=== PATIENT | female | born 1970 | race Caucasian/White ===

== ENCOUNTER 2021-05-29 09:12 | Outpatient (REF) | payer BC, SELFPAY ==
--- NOTE | ~2021-05-29 | US_ITS ---
EXAMINATION: LEFT ULTRASOUND VENOUS DUPLEX STUDY. LEFT ANKLE X-RAY CLINICAL INFORMATION: Pain left lower leg COMPARISON: None TECHNIQUE: Routine grayscale, color and Doppler imaging of left lower leg was performed. Left ankle 3 views. FINDINGS: Ultrasound left lower leg: There is normal compression and augmentation with color flow seen in the left common femoral, greater saphenous, superficial femoral, profunda, popliteal, posterior tibial and peroneal veins. The soft tissues are normal. Left ankle: There is no visible acute fracture, dislocation and subluxation. The ankle mortise and subtalar joints are normal. There is a small calcaneal heel and dorsal talar enthesophytes. US/US venous duplex LE LT IMPRESSION: Normal left lower extremity venous study. No evidence of DVT. No visible acute fracture or dislocation left ankle. Small calcaneal heel and dorsal talar enthesophytes.
== END 2021-05-29 09:13 | disposition home or self-care (01) ==
LOC: HO.HMGCX 09:12
PROVIDERS: PCP Internal Medicine; Visit Provider Physician Assistant Medical
DX: M79.662 Pain in left lower leg (principal); S99.912A Unspecified injury of left ankle, initial encounter; X58.XXXA Exposure to other specified factors, initial encounter; Y93.9 Activity, unspecified; Y92.9 Unspecified place or not applicable; Y99.8 Other external cause status
CPT/HCPCS: 73610; 93971

== ENCOUNTER 2025-01-08 15:51 | Emergency (ER) | payer BC, SELFPAY ==
[2025-01-08] VITALS (8 sets, daily range): BP systolic 116–145; BP diastolic 67–90; PULSE 90–119; RESP 13–22; TEMP 36.6–39.6; O2SAT 95–99; BMI 23.7
--- NOTE | 2025-01-08 | ECG_ITS ---
Test Reason : TACHYCARDIA Blood Pressure : */* mmHG Vent. Rate : 105 BPM Atrial Rate : 105 BPM P-R Int : 168 ms QRS Dur : 86 ms QT Int : 348 ms P-R-T Axes : 40 55 11 degrees QTcB Int : 459 ms Sinus tachycardia T wave abnormality, consider inferior ischemia Abnormal ECG When compared with ECG of 21-Oct-2011 09:48, No significant changes seen Referred By: Shawn Daniels Electronically Signed By: GREGORY COLEMAN MD
--- NOTE | ~2025-01-08 | XR_ITS ---
CLINICAL HISTORY: PNEUMONIA. coUGHING?FEVER Chest Radiograph Comparison: CR/SR - XR CHEST 2V - 12/11/22 13:[address]/SR - CT CHEST WO CON - 04/05/22 08:34 EDT Findings: No cardiomegaly. Normal mediastinal contours. No pneumothorax. No opacity. No pleural effusion. Normal upper abdomen. No acute fracture. Impression: No acute findings. This document has been electronically signed by: Rama Soriano MD on 01/08/2025 17:10:05
[2025-01-08 16:44] LABS: MANUAL DIFF FLAG NO
--- NOTE | 2025-01-08 16:45 | ED.GENADULT ---
HPI - General Adult General Chief complaint: Fever Stated complaint: cough and fever of 104, hx copd, duo neb given Time Seen by Provider: 01/08/25 16:29 Source: patient Mode of arrival: ambulatory Limitations: no limitations History of Present Illness ED Provider: Shawn Hudson HPI narrative: 55-year-old female history of asthma, COPD and pneumonia presents to ED for coughing with yellow phlegm and fever. Patient is having symptoms for more than a week. Patient was seen at urgent care and informed there is nothing going on. Patient states she did not have an xray. Patient denies any abdominal pain, fever, chills, urinary symptoms, chest pain, flank pain, rash, or diarrhea Related Data Home Medications ?Medication ?Instructions ?Recorded ?Confirmed lamotrigine 100 mg tablet 100 mg PO DAILY 01/10/25 01/10/25 Previous Rx's ?Medication ?Instructions ?Recorded insulin syr/ndl U100 half carl 0.3 #100 ea 12/25/21 mL 31 gauge x 5/16 (BD Insulin Syringe Ultra-Fine (half unit)) albuterol sulfate 90 mcg/actuation 2 puff inhalation Q4H PRN Wheezing 09/13/22 aerosol inhaler #8.5 grams albuterol sulfate 90 mcg/actuation 2 puff inhalation Q6H PRN 10/15/22 aerosol inhaler shortness of breath or wheezing #6.7 grams trazodone 50 mg tablet 50 mg PO DAILY #90 tabs 06/09/23 gabapentin 300 mg capsule 300 mg PO BEDTIME #90 caps 07/04/23 venlafaxine 37.5 mg 75 mg (2 x 37.5 mg) PO BEDTIME 08/29/23 capsule,extended release 24 hr #180 caps (Effexor XR) meclizine 25 mg tablet 25 mg PO BID PRN dizziness #20 tabs 02/22/24 syringe with needle, safety 3 mL #3 ea 02/29/24 23 gauge x 1 (BD Integra Syringe) cyanocobalamin (vitamin B-12) 1,000 mcg IM Q4W #3 mL 04/10/24 1,000 mcg/mL injection solution rosuvastatin 40 mg tablet (Crestor) 40 mg PO DAILY #90 tabs 05/31/24 amlodipine 5 mg-benazepril 40 mg 1 cap PO DAILY #90 caps 11/07/24 capsule prednisone 20 mg tablet 40 mg (2 x 20 mg) PO DAILY 5 days 01/08/25 #10 tabs Breo Ellipta 100 mcg-25 mcg/dose 1 inh inhalation DAILY #60 ea 01/10/25 powder for inhalation (fluticasone furoate-vilanterol) azithromycin 250 mg tablet See Rx Instructions PO .COMPLEX #6 01/10/25 tabs prednisone 20 mg tablet 40 mg (2 x 20 mg) PO DAILY #10 tabs 01/10/25 promethazine 6.25 mg-codeine 10 5 ml PO Q6H PRN cough #473 mL 01/10/25 mg/5 mL syrup Allergies Allergy/AdvReac Type Severity Reaction Status Date / Time perflutren AdvReac Back Pain Verified 01/08/25 16:05 Review of Systems Review of Systems: Coughing, fever Yes all other systems are reviewed and are negative PMFSH Past Medical History Medical History Breast calcification, left PONV (postoperative nausea and vomiting) Abscess, intra-abdominal, postoperative Pelvic abscess in female Acute perforated appendicitis Asthma Hyperlipidemia Bilateral hand numbness Diarrhea Eating disorder HTN (hypertension) COPD (chronic obstructive pulmonary disease) Anxiety Left ankle sprain Surgical History History of laparoscopic appendectomy History of bladder suspension procedure History of thyroidectomy Hx of hysterectomy Family History Family History Brother Substance use disorder Brother Substance use disorder Mother Mental health disorder [place] (myocardial infarction), Onset Age: 64 Social History Social History Household Members: Spouse Household Members Other:: , 3 children, 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 Are you a primary home health care coordinator to a significant other at home: No Do you presently have visiting nurse or other home services: No Alcohol intake: current Alcohol intake frequency: a few times a month Alcohol type: wine Patient Tobacco Use Status: Former Tobacco user Tobacco use type: Cigarette e-Cigarette/Vaping Use: Never Used Advance Directives Date on File: 05/18/22 service: No Current occupational status: employed Current occupation: day care Cognitive needs: No Hearing needs: No Vision needs: Yes Physical Exam ED Vital Signs: Vital Signs - 24 hr 01/08/25 16:01 01/08/25 16:10 01/08/25 17:46 Temperature 103.2 F H 103.2 F H Pulse Rate 110 H 110 H 97 Respiratory Rate 22 H 22 H 18 Blood Pressure 139/85 139/85 123/78 Pulse Oximetry 96 96 96 Oxygen Delivery Method Room Air Room Air Room Air 01/08/25 18:00 01/08/25 18:27 01/08/25 18:39 Temperature 98.3 F 98.1 F Pulse Rate 97 96 Respiratory Rate 16 13 Blood Pressure 132/80 121/67 Pulse Oximetry 97 97 97 Oxygen Delivery Method Room Air Room Air 01/08/25 19:01 01/08/25 19:10 Temperature 97.8 F 97.8 F Pulse Rate 90 90 Respiratory Rate 14 18 Blood Pressure 116/76 116/76 Pulse Oximetry 95 98 Oxygen Delivery Method Room Air Room Air BMI result Body Mass Index 23.7 Const General: cooperative, healthy appearing, comfortable, no acute distress, well developed, alert and awake Orientation/consciousness: patient oriented x3 [facility] Head: Yes normal to inspection, Yes No palpable skull fracture present, Yes normocephalic and Yes atraumatic Eyes General: appearance normal, both eyes and all related structures Neck Neck: Yes normal visual inspection, Yes full ROM, Yes no lymphadenopathy, Yes no meningeal signs, Yes trachea midline, Yes supple, No anterior neck swelling and No tender Chest Chest palpation & inspection: normal inspection of the chest and normal palpation of entire chest wall Resp Effort & Inspection: normal respiratory effort and able to speak in complete sentences Auscultation: clear to auscultation bilaterally Cardio Jugular venous distension: no JVD Heart sounds: S1 normal heart sound present and S2 normal heart sound present GI Inspection: Yes normal to inspection Palpation (GI): Soft to palpation, not firm, nontender, no guarding and not rigid General: Yes no CVA tenderness Back/Spine/Pelvis Back: no CVA tenderness and No back tenderness Skin General skin exam: no rashes or lesions noted, elasticity normal and turgor normal Neuro General: patient oriented x3, gait normal, tone normal, moves all extremities, Normal light touch and pain sensation, no meningeal signs, no focal motor deficits, CN's II-XI intact bilaterally and normal sensation to monofilament Extrem General: Yes normal to inspection, Yes full ROM and Yes capillary refill normal Psych Appearance: grossly normal, well kempt and not disheveled Medications Administered Discontinued Medications Generic Name Dose Route Start Last Admin Trade Name Garcia PRN Reason Stop Dose Admin Acetaminophen 975 mg 01/08/25 16:34 01/08/25 16:58 Acetaminophen 325 Mg Tablet PO 01/08/25 16:35 975 mg ONCE ONE Administration Ceftriaxone Sodium 1 gm 01/08/25 16:46 01/08/25 16:58 Ceftriaxone Sodium 1 Gm Vial IVPUSH 01/08/25 16:47 1 gm ONCE ONE Administration Azithromycin 500 mg/ Sodium 250 mls @ 125 mls/hr 01/08/25 16:46 01/08/25 17:00 Chloride IV 01/08/25 18:45 125 mls/hr ONCE ONE Administration Lactated Ringer's 1,935 mls @ 1,935 mls/hr 01/08/25 16:56 01/08/25 18:45 Lr 30 ml/kg infuse over 1 hr (1935 ml) 01/08/25 17:55 Infused IV Infusion .Q1H ONE Ketorolac Tromethamine 30 mg 01/08/25 17:45 01/08/25 17:57 Ketorolac Tromethamine 30 Mg/Ml Vial IVPUSH 01/08/25 17:46 30 mg ONCE ONE Administration Medical Decision Making Medical Decision Making MDM Narrative: 55-year-old female presents to ED for coughing, fever coughing yellow phlegm chills and body aches for over 1 week. Patient was seen by urgent care and informed she did not have nothing although there was no chest x-ray done. Sepsis called. EKG labs fluids antibiotics albuterol inhaler ordered 7:06pm: Patient is positive for COVID. Chest x-ray negative pneumonia. EKG sinus tach. Oxygen ambulatory test 97% on room air. Not suspecting PE, GA, myocarditis, pericarditis. Patient will be discharged with steroids. Patient has albuterol pump at home. Patient will follow up with primary care provider. Patient explained worrisome signs and informed to return to the ED immediately. Differential Diagnosis Differential Diagnoses: The differential diagnosis associated with the presentation includes (Pneumonia, RSV, COVID, influenza) Admission/Observation Consideration of admission/observation: Escalation of care including admission/observation considered Lab Data 01/08/25 16:40 01/08/25 16:40 Labs: Lab Results 01/08/25 01/08/25 01/08/25 Range/Units 16:40 16:41 17:14 WBC 5.8 (4.8-10.8) X10*3/uL RBC 3.69 L (4.20-5.50) X10*6/uL Hgb 11.7 L (12.0-16.0) g/dl Hct 33.7 L (37.0-47.0) % MCV 91.3 (80.0-98.0) fL MCH 31.7 (27.0-33.0) pg MCHC 34.7 (31.0-35.0) g/dl RDW 12.9 (11.0-16.0) % Plt Count 239 D (160-400) X10*3/uL MPV 9.2 L (9.4-12.3) fL Immature Gran % (Auto) 0.5 H (0.0-0.4) % Neut % (Auto) 77.0 H (45-73) % Lymph % (Auto) 8.7 L (20-40) % [place] % (Auto) 13.0 H (2-11) % Eos % (Auto) 0.3 (0-4) % Baso % (Auto) 0.5 (0-2) % Lymph # (Auto) 0.5 L (1.2-4.9) X10*3/uL [place] # (Auto) 0.8 (0.1-1.2) X10*3/uL Eos # (Auto) 0.0 (0.0-0.4) X10*3/uL Baso # (Auto) 0.0 (0.0-0.2) X10*3/uL Abs Immat Gran (auto) 0.03 (0.00-0.03) X10*3/uL Absolute Neuts (auto) 4.4 (2.0-8.3) x10*3/uL Absolute Nucleated RBC 0.000 (0.0-0.012) X10*3/uL Nucleated RBC % (auto) 0.0 (0.0-0.2) /100WBC Sodium 135 (135-145) mmol/L Potassium 3.3 (3.3-5.1) mmol/L Chloride 103 (96-108) mmol/L Carbon Dioxide 22 (22-29) mmol/L Anion Gap 13 (12-20) BUN 12 (9-16) mg/dL Creatinine 0.85 (0.5-1.4) mg/dL Estim Creat Clear Calc 67.2 Estimated GFR > 60 Random Glucose 105 (60-115) mg/dL Lactic Acid 0.8 (0.5-2.0) mmol/L Calcium 9.1 (8.4-10.2) mg/dL Total Bilirubin 0.4 (0.0-1.0) mg/dL Direct Bilirubin 0.2 (0.0-0.5) mg/dL AST 42 H (5-31) U/L ALT 37 H (0-31) U/L Alkaline Phosphatase 87 (39-117) U/L Total Protein 7.6 (6.5-8.0) g/dL Albumin 4.7 (3.5-5.0) g/dL Urine Color Yellow Urine Appearance Clear Urine pH 6.0 (5.0-9.0) Ur Specific [place] 1.025 (1.005-1.025) Urine Protein 30 (1+) H (Neg-Trace) mg/dL Urine Glucose (UA) Negative (Negative) mg/dL Urine Ketones Trace (Negative) mg/dL Urine Blood Large (3+) H (Negative) Urine Nitrite Negative (Negative) Ur Leukocyte Esterase Negative (Negative) Urine RBC >20 H (0-2) /HPF Urine WBC 0-5 (0-5) /HPF Ur Squamous Epith Cells 6-10 (0-2) /HPF Urine Bacteria None Seen (None Seen) Hyaline Casts 0-2 (0-2) /LPF Influenza Type A (PCR) NEGATIVE (Negative) Influenza Type B (PCR) NEGATIVE (Negative) RSV RNA Qual (PCR) NEGATIVE (Negative) SARS-CoV-2 RNA (RT-PCR) POSITIVE A (Negative) Independent Interpretation I performed an independent interpretation of an: EKG (Sinus tach) and Plain X-Ray Radiology Impression Discussion of test interpretation with radiology: I have reviewed the radiologist's reading. Independent Historian Clinical information obtained from an independent historian. History obtained from or confirmed by: Other (Patient) Prescription Management I considered prescription management with: Other (Prednisone) Discharge Plan Discharge Clinical Impression: COVID-19 Patient Disposition: Home, Self-Care Instructions: COVID-19 (Coronavirus Disease 2019) (ED) Additional Instructions: You came back positive for COVID. Continue using albuterol inhaler as needed. You will be also discharged with steroids. Return to the ED immediately for any chest pain, shortness of breath, coughing up blood, weakness, dizziness, calf pain, chest pain on inspiration, shortness of breath on exertion, or any other concerning symptoms. Prescriptions: New prednisone 20 mg tablet 40 mg PO DAILY 5 Days Qty: 10 0RF No Action albuterol sulfate 90 mcg/actuation HFA aerosol inhaler 2 puff inhalation Q4H PRN (Reason: Wheezing) Qty: 8.5 4RF trazodone 50 mg tablet 50 mg PO DAILY Qty: 90 3RF gabapentin 300 mg capsule 300 mg PO BEDTIME Qty: 90 3RF (DME) BD Integra Syringe 3 mL 23 gauge x 1 syringe See Rx Instructions .Route Qty: 3 3RF Rx Instructions: Use to inject vitamin B-12 monthly cyanocobalamin (vitamin B-12) 1,000 mcg/mL solution 1,000 mcg IM Q4W Qty: 3 12RF rosuvastatin [Crestor] 40 mg tablet 40 mg PO DAILY Qty: 90 0RF amlodipine-benazepril 5-40 mg capsule 1 cap PO DAILY Qty: 90 3RF (DME) BD Insulin Syringe (half unit) 0.3 mL 31 gauge x 5/16 syringe See Rx Instructions .Route Qty: 100 1RF Rx Instructions: 1 A WEEK venlafaxine [Effexor XR] 37.5 mg capsule,extended release 24hr 75 mg PO BEDTIME Qty: 180 0RF meclizine 25 mg tablet 25 mg PO BID PRN (Reason: dizziness) Qty: 20 0RF albuterol sulfate 90 mcg/actuation HFA aerosol inhaler 2 puff inhalation Q6H PRN (Reason: shortness of breath or wheezing) Qty: 6.7 0RF lamotrigine 100 mg tablet 100 mg PO DAILY azithromycin 250 mg tablet See Rx Instructions PO .COMPLEX Qty: 6 0RF Rx Instructions: For 250 mg dose pack: take 500 mg today (day 1), then 250 mg for 4 days (days 2-5) PO prednisone 20 mg tablet 40 mg PO DAILY Qty: 10 0RF promethazine-codeine 6.25-10 mg/5 mL syrup 5 ml PO Q6H PRN (Reason: cough) Qty: 473 0RF fluticasone furoate-vilanterol [Breo Ellipta] 100-25 mcg/dose blister with device 1 inh inhalation DAILY Qty: 60 0RF Stand Alone Forms: Work/School Release Interventions: ED Discharge Assessment Last Done: 01/08/25 19:10 Discharge Date/Time: 01/08/25 19:12 Print Language: Azeri
[2025-01-08 16:46] LABS: Basophils Percent Auto 0.5 % (0-2); Eosinophils Percent Auto 0.3 % (0-4); Hematocrit 33.7 % (37.0-47.0); Hemoglobin 11.7 g/dl (12.0-16.0); Imm Gran Abs Auto 0.03 X10*3/uL (0.00-0.03); Imm Gran Pct Auto 0.5 % (0.0-0.4); Lymphocytes Absolute Auto 0.5 X10*3/uL (1.2-4.9); Lymphocytes Percent Auto 8.7 % (20-40); Mean Corpuscular HGB Conc 34.7 g/dl (31.0-35.0); Mean Corpuscular Hemoglobin 31.7 pg (27.0-33.0); Mean Corpuscular Volume 91.3 fL (80.0-98.0); Mean Platelet Volume 9.2 fL (9.4-12.3); Monocytes Absolute Auto 0.8 X10*3/uL (0.1-1.2); Neutrophils Absolute Auto 4.4 x10*3/uL (2.0-8.3); Platelet Count 239 X10*3/uL (160-400); Red Blood Count 3.69 X10*6/uL (4.20-5.50); Red Cell Distribution Width 12.9 % (11.0-16.0); White Blood Count 5.8 X10*3/uL (4.8-10.8)
[2025-01-08] MEDS: cefTRIAXone sodium 1 GM VIAL IVPUSH (16:58)
[2025-01-08] MEDS: Acetaminophen 325 MG TABLET 975 MG PO (16:58)
[2025-01-08] MEDS: Azithromycin 500 MG in 0.9 % Sodium Chloride 250 ML 125 MG IV (17:00)
[2025-01-08 17:01] LABS: Lactic Acid 0.8 mmol/L (0.5-2.0)
[2025-01-08 17:02] LABS: Alanine Aminotransferase 37 U/L (0-31); Albumin Level 4.7 g/dL (3.5-5.0); Alkaline Phosphatase 87 U/L (39-117); Anion Gap 13 (12-20); Aspartate Amino Transferase 42 U/L (5-31); Bilirubin Direct 0.2 mg/dL (0.0-0.5); Bilirubin Total 0.4 mg/dL (0.0-1.0); Blood Urea Nitrogen 12 mg/dL (9-16); Calcium 9.1 mg/dL (8.4-10.2); Carbon Dioxide 22 mmol/L (22-29); Chloride 103 mmol/L (96-108); Creatinine Clr Calc Pharmacy 67.2; Estimated Glomerular Filt Rate > 60; Glucose Random 105 mg/dL (60-115); Potassium 3.3 mmol/L (3.3-5.1); Sodium 135 mmol/L (135-145); Total Protein 7.6 g/dL (6.5-8.0)
[2025-01-08 17:23] LABS: Appearance Urine Clear; Color Urine Yellow; Glucose Urine UA Negative (Negative); Leukocyte Esterase Urine Negative (Negative); Nitrite Urine Negative (Negative); Specific Gravity - Urine 1.025 (1.005-1.025); UMIC TRIGGER UACC YES; Urine Blood Large (3+) (Negative); Urine Ketones Trace mg/dL (Negative); Urine Protein 30 (1+) mg/dL (Neg-Trace)
[2025-01-08 17:24] LABS: Influenza A PCR NEGATIVE (Negative); Influenza B PCR NEGATIVE (Negative); Resp Syncy Virus RNA Qual PCR NEGATIVE (Negative); SARS COV2 PCR INHOUSE POSITIVE (Negative)
--- NOTE | 2025-01-08 17:36 | PC.NURSE ---
Patient presents to ED from home c/o fever and headache rated 10/10. Fever on arrival 103.2 rectal. Denies N/V, Denies dizziness. 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 Patient SOB on excertion O2 97% RA HX COPD, patient has productive cough. CXR unremarable. Sepsis protocol initiated. Blood collected/sent 18G in left AC. Plan of care on going
[2025-01-08] MEDS: Ketorolac Tromethamine 30 MG/ML VIAL IVPUSH (17:57)
--- NOTE | 2025-01-08 18:27 | PC.NURSE ---
did an ambulation trial pt's sats maintained at 97% on room air and hr at 106 felt a light headed
[2025-01-08 18:47] LABS: Bacteria Urine None Seen (None Seen); Hyaline Casts Urine 0-2 /LPF (0-2); RBC Urine >20 /HPF (0-2); WBC Urine 0-5 /HPF (0-5)
--- NOTE | 2025-01-08 18:49 | PC.NURSE ---
pt and provider agreed that she could go home without completing her total of 1935 of the fluids pt did received 1000ml of the ns
== END 2025-01-08 19:12 | disposition home or self-care (01) ==
PROVIDERS: Physician Assistant; Emergency Provider Emergency Medicine
DX: U07.1 COVID-19 (principal); R50.9 Fever, unspecified; R05.9 Cough, unspecified; J44.9 Chronic obstructive pulmonary disease, unspecified; Z79.899 Other long term (current) drug therapy
CPT/HCPCS: 0241U; 36415; 71045; 80053; 81001; 82248; 83605; 85025; 87040; 93005; 96361; 96374; 96375; 99284; 99285; J0456; J0696; J1885; J7120

== ENCOUNTER → 2025-01-08 16:29 | Outpatient (BNV) | payer BC, SELFPAY | PROVIDERS: Emergency Provider Emergency Medicine; Visit Provider Radiology Diagnostic Radiology | DX: R50.9 Fever, unspecified (principal) | CPT/HCPCS: 71045 ==

== ENCOUNTER → 2025-01-08 17:05 | Outpatient (BNV) | payer BC, SELFPAY | PROVIDERS: Emergency Provider Emergency Medicine; Visit Provider Internal Medicine Cardiovascular Disease | DX: R00.0 Tachycardia, unspecified (principal) | CPT/HCPCS: 93010 ==

== ENCOUNTER 2025-01-10 10:13 | Outpatient (AMB) | payer BC, SELFPAY ==
--- NOTE | 2025-01-10 10:15 | A.OFFPC_ITS ---
Vital Signs 01/10/25 10:18 Height 5 ft 5 in BMI Reason not done Patient refused/unable BP 120/78 Blood Pressure Location Lt brachial Position Sitting Respiration 18 Pulse 86 Pulse Source Pulse Oximeter Temp 98.5 F Temp Source Oral Pulse Oximetry (%) 97 Oxygen Delivery Method Room Air Intake Visit Reasons: persistent cough Intake Note: Pt is here today for a [facility] visit. Pt c/o persistent cough. Allergies perflutren Adverse Reaction (Verified 01/08/25 16:05) Back Pain Medication List - Last Reconciled 01/10/25 by Sarah Yanes MD albuterol sulfate 90 mcg/actuation 2 puffs inhalation Q6H PRN albuterol sulfate 90 mcg/actuation 2 puffs inhalation Q4H PRN amlodipine-benazepril 5-40 mg 1 cap PO DAILY azithromycin For 250 mg dose pack: take 500 mg today (day 1), then 250 mg for 4 days (days 2-5) PO Breo Ellipta 100-25 mcg/dose (fluticasone furoate-vilanterol) 1 inh inhalation DAILY NS cyanocobalamin (vitamin B-12) 1,000 mcg IM Q4W gabapentin 300 mg PO BEDTIME insulin syr/ndl U100 half carl (BD Insulin Syringe Ultra-Fine (half unit)) 1 A WEEK lamotrigine 100 mg PO DAILY meclizine 25 mg PO BID PRN prednisone 40 mg (2 x 20 mg) PO DAILY 5 days prednisone 40 mg (2 x 20 mg) PO DAILY promethazine-codeine 6.25-10 mg/5 mL 5 mL PO Q6H PRN rosuvastatin (Crestor) 40 mg PO DAILY syringe with needle, safety (BD Integra Syringe) Use to inject vitamin B-12 monthly trazodone 50 mg PO DAILY venlafaxine ER (Effexor XR) 75 mg (2 x 37.5 mg) PO BEDTIME Tobacco use date assessed: 01/10/25 Dental Screening Dental Screen Date: 01/10/25 Did you have a dental visit in the last 12 months?: Yes Did you have a dental problem in the last 6 months where you did not have access to dental care?: No Was dental information given to patient?: Patient has dentist HPI persistent cough HPI Details Pt patient developed headache and initially dry cough fever up 104 for about 10 days ago. Patient was seen in the ER and test is positive for COVID. She was started on prednisone 2 days ago without significant improvement patient reports wheezing productive cough with yellow sputum. [facility] Medical History Breast calcification, left PONV (postoperative nausea and vomiting) Abscess, intra-abdominal, postoperative Pelvic abscess in female Acute perforated appendicitis Asthma Hyperlipidemia Bilateral hand numbness Diarrhea Eating disorder HTN (hypertension) COPD (chronic obstructive pulmonary disease) Anxiety Left ankle sprain Surgical History History of laparoscopic appendectomy History of bladder suspension procedure History of thyroidectomy Hx of hysterectomy Family History Brother Substance use disorder Brother Substance use disorder Mother Mental health disorder [place] (myocardial infarction), Onset Age: 64 Social History Household Members: Spouse Household Members Other:: , 3 children, 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 Are you a primary direct support professional caregiver to a significant other at home: No Do you presently have visiting nurse or other home services: No Alcohol intake: current Alcohol intake frequency: a few times a month Alcohol type: wine Patient Tobacco Use Status: Former Tobacco user Tobacco use type: Cigarette e-Cigarette/Vaping Use: Never Used Advance Directives Date on File: 05/18/22 service: No Current occupational status: employed Current occupation: day care Cognitive needs: No Hearing needs: No Vision needs: Yes Questionnaire Thrive Questionnaire Date Thrive assessed: 12/25/21 AUDIT C Alcohol Use Questionnaire (AUDIT-C) 2. How many drinks containing alcohol do you have on a typical day when you are drinking?: 1 or 2 3. How often do you have six or more drinks on one occasion?: Never Total Score: 0 NEFTALY-7 AMB Questionnaire NEFTALY-7 Date NEFTALY - 7 assessed: 08/29/23 Source: Developed by Drs. Abe Arriaza, Dunia Christianson, Darin Garcia and colleagues, with an educational lewis from [employer]. Review of Systems Const All systems reviewed & are unremarkable except as noted in HPI and below Eyes Reports no additional complaints ENT Reports no additional complaints Card Reports no additional complaints Resp Reports no additional complaints GI Reports no additional complaints Physical exam (Primary Care) Vital Signs: Last Vital Signs Temp 98.5 F 01/10/25 10:18 Pulse 86 01/10/25 10:18 Resp 18 01/10/25 10:18 BP 120/78 01/10/25 10:18 Pulse Ox 97 01/10/25 10:18 Oxygen Delivery Method Room Air 01/10/25 10:18 Tobacco/Smoking Status: Tobacco use Status Tobacco use date assessed 01/10/25 01/10/25 10:34 Patient Tobacco Use Status Former Tobacco user 01/10/25 10:16 Tobacco use type Cigarette 01/10/25 10:16 e-Cigarette/Vaping Use Never Used 01/10/25 10:16 Thrive Assessment: Date of Thrive Assessment Date Thrive assessed 12/25/21 01/10/25 10:16 Const General: no acute distress HENMT Head: Yes normal to inspection Eyes General: appearance normal, both eyes and all related structures Neck Neck: Yes supple Resp Effort & Inspection: normal respiratory effort Auscultation: wheezes and diminished lung sounds Cardio Rhythm: regular rhythm Heart sounds: S1 normal heart sound present and S2 normal heart sound present Coding Level of Care Code Est Pt Level 3 (62912) Diagnoses Bronchitis J40 Assessment & Plan Assessment & Plan (1) Bronchitis: Code(s): J40 - Bronchitis, not specified as acute or chronic Category: Medical Plan: Z-Michael, promethazine with codeine cough syrup are prescribed. patient will continue prednisone and Breo 100 mcg will be added to albuterol. Follow-up in 1 week or p.r.n. Medications: New azithromycin For 250 mg dose pack: take 500 mg today (day 1), then 250 mg for 4 days (days 2-5) PO 6 tabs 0RF promethazine-codeine 6.25-10 mg/5 mL 5 mL PO Q6H PRN 473 mL 0RF cough prednisone 40 mg (2 x 20 mg) PO DAILY 10 tabs 0RF Breo Ellipta 100-25 mcg/dose (fluticasone furoate-vilanterol) 1 inh inhalation D AILY 60 ea 0RF NS
[2025-01-10 10:18] VITALS: BP 120/78; PULSE 86; RESP 18; TEMP 36.9; O2SAT 97
--- OUTSIDE RECORDS SUMMARY | 2025-01-10 10:33 | XMS_ITS | Clinical Summary ---
Author Organization [facility] it Address [address] [place] [address] Care Team Providers Care Combine Mechanic Name Role Phone Unavailable Primary Care Provider Unavailabl e Surgical History Surgery Date Site/Laterality Comments HYSTERECTOMY 1996 PROCEDURE: HISTORICAL VAGINAL HYSTERECTOMY W/O BSO; COMMENT: retained ovaries, for pain OTHER SURGICAL HISTORY PROCEDURE: [place] BLADDER INSTILLATION ANTICARCINOGENIC AGENT; COMMENT: bladder suspension TONSILLECTOMY PROCEDURE: HISTORICAL TONSILLECTOMY UPPER GASTROINTESTINAL ENDOSCOPY 02/21/2015 PROCEDURE: [place] UPPER GI ENDOSCOPY PERFORMED; COMMENT: Visually normal, duodenal biopsies performed and were normal. THYROIDECTOMY 02/01/2018 PROCEDURE: HISTORICAL TOTAL THYROIDECTOMY Medical History Medical History Date Comments Unspecified asthma(493.90) 08/06/2005 DX:Un specified asthma(493.90) Diarrhea 08/06/2005 DX:Diarrhea Depressive disorder, not els ewhere classified 08/06/2005 DX:Depressive disorder, not elsewhere classified Agoraphobia with panic disorder 08/06/2005 DX:Agoraphobia with panic disorder Posttraumatic stress disorder 08/06/2005 DX :Posttraumatic stress disorder Anorexia nervosa ([facility] V28) 12/06/2005 D X:Anorexia nervosa IBS (irritable bowel syndrome) 02/25/2015 D X:IBS (irritable bowel syndrome); COMMENT: Diarrhea predominant, onset approximately age 30. Family History Medical History Relation Name Comments Heart attack Father [place] x 6; double bypass, asthma, copd, heart transplant-pacemaker, pul embolism Lung cancer Father Depression Mother alive Lung cancer Paternal Grandmother Lung cancer Uncle Breast cancer Neg Hx Relation Name Status Comments Father Mother Paternal Grandmother Uncle Social History Tobacco Use Types Packs/Day Years Used Date Smoking Tobacco: Former Cigarettes Q uit: 04/15/2015 Smokeless Tobacco: Never Quit: 04/15/2015 Alcohol Use Standard Drinks/Week Comments Yes 0 (1 standard drink = 0.6 oz pur e alcohol) Comments Unknown Sex and Gender Information Value Date Recorded Sex Assigned at Not on file Legal Sex Female 2:10 AM EST Gender Identity Not on file Sexual Orientation Not on file Obstetrics History Plan of Treatment Health Maintenance Due Date Last Done Comments Hepatitis B Vaccines (1 of 3 - 19+ 3-dose series) 1989 Pneumococcal Vaccine: 50+ Years (1 of 2 - PCV) 1989 Pneumococcal Vaccine: Pediatrics (0 to 5 Years) and At-Risk Patients (6 to 64 Years) (1 of 2 - PCV) 1989 Cervical Cancer Screening: P ap Smear 1991 Zoster Vaccines (1 of 2) 01/09/2020 Breast Cancer Screening 12/16/2020 12/17/19 19, 12/16/2017, 12/03/2017 Cholesterol Screening (Lipid Panel) 07/18/2022 Colorectal Cancer Screening: Colonoscopy 07/18/2022 Depression Screening 07/18/2022 HIV Screening 07/18/2022 Hepatitis C Screening 07/18/2022 Social Influencers of Health Screening 07/18/2022 Hypertension/CHF/CAD Annual BMP Blood Test 07/31/2022 COVID-19 Vaccine (2 - 2023-2 5 season) 2024 06/19/2021 Influenza Vaccine (Season Ended) 2025 DTaP,Tdap,and Td Vaccines (3 - Td or Tdap) 05/13/2031 05/13/2021, 11/10/2009 HIB Vaccines Aged Out No longer eligi ble based on patient's age to complete this topic HPV Vaccines Aged Out No longer eligi ble based on patient's age to complete this topic Hepatitis A Vaccines Aged Out No long er eligible based on patient's age to complete this topic IPV Vaccines Aged Out No longer eligi ble based on patient's age to complete this topic MMR Vaccines Aged Out No longer eligi ble based on patient's age to complete this topic Meningococcal ACWY Vaccine Aged Out N o longer eligible based on patient's age to complete this topic Meningococcal B Vaccine Aged Out No l onger eligible based on patient's age to complete this topic RSV Immunization Patients Under 20 months Aged Out No longer eligible b ased on patient's age to complete this topic Varicella Vaccines Aged Out No longer eligible based on patient's age to complete this topic Procedures Procedure Name Priority Date/Time Associated Diagnosis Comments SCR MAMMO BI INCL CAD Routine 12/16/2018 10:59 AM EDT Encounter for screening mammogram for malignant neoplasm of breast from Last 3 Months or Most Recently Relevant to Health Maintenance Results * SCR MAMMO BI INCL CAD (12/16/2018 10:59 AM EDT) Anatomical Region Laterality Modality Radiographic Kelsi ging 12/03/2017 11:3 7 AM EDT Narrative 12/16/2018 2:38 PM EDT This is a summary report. The complete report is available in the patient's medical record. If you cannot access the medical record, please contact the sending organization for a detailed fax or copy. Full field digital screening mammography, reviewed with CAD and compared to previous. The breast tissue is heterogeneously dense, limiting sensitivity. No suspicious mass, architectural distortion or suspicious calcifications are identified. IMPRESSION: : Dense breast tissue, limiting the sensitivity of mammography. No mammographic evidence of malignancy. BIRADS 1-Negative; N. 5 year breast cancer risk assessment 0.7 % Lifetime breast cancer risk assessment 7.6 % Breast cancer risk category Low (<15%) Procedure Note Edwar Julian MD - 08/03/2022 This is a summary report. The complete report is available in thepatient's medical record. If you cannot access the medical record, pleasecontact the sending organization for a detailed fax or copy. Full field digital screening mammography, reviewed with CAD and comparedto previous. The breast tissue is heterogeneously dense, limitingsensitivity. No suspicious mass, architectural distortion or suspiciouscalcifications are identified. IMPRESSION: : Dense breast tissue, limiting the sensitivity of mammography. Nomammographic evidence of malignancy. BIRADS 1-Negative; N. 5 year breast cancer risk assessment 0.7 % Lifetime breast cancer risk assessment 7.6 % Breast cancer risk category Low (<15%) us Magnus Owen MD IMG XR PROCEDURES Final Result from Last 3 Months or Most Recently Relevant to Health Maintenance
== END 2025-01-10 14:11 | disposition home or self-care (01) ==
LOC: HO.HMCC 10:14
PROVIDERS: Visit Provider Internal Medicine
DX: J40 Bronchitis, not specified as acute or chronic (principal)

== ENCOUNTER → 2025-01-10 10:13 | Outpatient (BNVA) | payer BC, SELFPAY | PROVIDERS: Visit Provider Internal Medicine ==

== ENCOUNTER 2025-02-18 11:46 | Outpatient (AMB) | payer BC, SELFPAY ==
[2025-02-18 12:24] VITALS: BP 122/74
--- NOTE | 2025-02-18 12:24 | MHC.PC.OV ---
Vital Signs 02/18/25 12:24 Height 5 ft 5 in BMI Reason not done Patient refused/unable BP 122/74 Blood Pressure Location Lt brachial Position Sitting Intake Visit Reasons: Annual PE Allergies perflutren Adverse Reaction (Verified 02/18/25 12:24) Back Pain Medication List - Last Reconciled 02/18/25 by Sarah Yanes MD albuterol sulfate 90 mcg/actuation 2 puffs inhalation Q6H PRN amlodipine-benazepril 5-40 mg 1 cap PO DAILY Breo Ellipta 100-25 mcg/dose (fluticasone furoate-vilanterol) 1 ea inhalation DAILY NS cyanocobalamin (vitamin B-12) 1,000 mcg IM Q4W gabapentin 300 mg PO BEDTIME insulin syr/ndl U100 half carl (BD Insulin Syringe Ultra-Fine (half unit)) 1 A WEEK lamotrigine 100 mg PO DAILY rosuvastatin (Crestor) 40 mg PO DAILY syringe with needle, safety (BD Integra Syringe) Use to inject vitamin B-12 monthly trazodone 50 mg PO DAILY venlafaxine ER (Effexor XR) 75 mg (2 x 37.5 mg) PO BEDTIME Tobacco use date assessed: 01/10/25 Dental Screening Dental Screen Date: 01/10/25 HPI Annual PE HPI Details Patient presents for physical. Patient complains of bilateral hand numbness and burning sensation mainly at night for many months. 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 [facility] Medical History Breast calcification, left PONV (postoperative nausea and vomiting) Abscess, intra-abdominal, postoperative Pelvic abscess in female Acute perforated appendicitis Asthma Hyperlipidemia Bilateral hand numbness Diarrhea Eating disorder HTN (hypertension) COPD (chronic obstructive pulmonary disease) Anxiety Left ankle sprain Surgical History Hx of colonoscopy History of laparoscopic appendectomy History of bladder suspension procedure History of thyroidectomy Hx of hysterectomy Family History Brother Substance use disorder Brother Substance use disorder Mother Mental health disorder ND (myocardial infarction), Onset Age: 64 Social History Household Members: Spouse Household Members Other:: , 3 children, 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 Are you a primary day care home mother to a significant other at home: No Do you presently have visiting nurse or other home services: No Alcohol intake: current Alcohol intake frequency: a few times a month Alcohol type: wine Patient Tobacco Use Status: Former Tobacco user Tobacco use type: Cigarette e-Cigarette/Vaping Use: Never Used Advance Directives Date on File: 05/18/22 service: No Current occupational status: employed Current occupation: day care Cognitive needs: No Hearing needs: No Vision needs: Yes Questionnaire PHQ-9 Over the last 2 weeks, how often have you been bothered by any of the following problems? 1. Little interest or pleasure in doing things: not at all 2. Feeling down, depressed, or hopeless: not at all 3. Trouble falling or staying asleep, or sleeping too much: several days 4. Feeling tired or having little energy: not at all 5. Poor appetite or overeating: not at all 6. Feeling bad about yourself - or that you are a failure or have let yourself or your family down: not at all 7. Trouble concentrating on things, such as reading the newspaper or watching television: not at all 8. Moving or speaking so slowly that other people could have noticed. Or the opposite - being so fidgety or restless that you have been moving around a lot more than usual: not at all 9. Thoughts that you would be better off or of hurting yourself in some way: not at all Total score: 1 Depression Screening Interpretation: Negative Depression Screening Done: Yes 24250 - PHQ-9 Billing: Yes Source: Developed by Drs. Abe Arriaza, Dunia Christianson, Darin Garcia and colleagues, with an educational lewis from [employer]. Thrive Questionnaire Date Thrive assessed: 02/11/25 I am a: Patient What is your living situation today?: I have a steady place to live Within the past 12 months, did the food you bought not last and you didn't have the money to get more?: Never true Within the past 12 months, did you worry whether your food would run out before you got money to buy more?: Never true Do you have trouble paying for medicines?: No Do you have trouble getting transportation to medical appointments?: No Do you have trouble paying your heating and electricity bill?: No Do you have trouble taking care of your child, family member or friend?: No Do you have trouble with day-to-day activities such as bathing, preparing meals, shopping, managing finances, etc.?: No Are you currently unemployed and looking for a job?: No Are you interested in more education?: No Please select the resources that you would like help with: None Currently or been in a relationship where the following occur: I choose not to answer THRIVE Score: 0 AUDIT C Alcohol Use Questionnaire (AUDIT-C) 1. How often do you have a drink containing alcohol?: 2-4 times a month 2. How many drinks containing alcohol do you have on a typical day when you are drinking?: 1 or 2 3. How often do you have six or more drinks on one occasion?: Never Total Score: 2 Score Reviewed/Action Taken: Yes NEFTALY-7 AMB Questionnaire NEFTALY-7 Date NEFTALY - 7 assessed: 02/18/25 Feeling nervous, anxious, or on edge: 0 = Not at all Not being able to stop or control worryin = Not at all Worrying too much about different things: 0 = Not at all Trouble relaxin = Several days Being so restless that it is hard to sit still: 0 = Not at all Becoming easily annoyed or irritable: 2 = More than half the days Feeling afraid as if something awful might happen: 0 = Not at all Total NEFTALY-7 score (0-4 normal; 5-9 mild; 10-14 moderate; 15-21 severe): 3 Source: Developed by Drs. Abe Arriaza, Dunia Christianson, Darin Garcia and colleagues, with an educational lewis from [employer]. NEFTALY-7 Assessment Billing NEFTALY-7 Assessment Tool: NEFTALY-7 Assessment 87256 Review of Systems Const All systems reviewed & are unremarkable except as noted in HPI and below Eyes Reports no additional complaints ENT Reports no additional complaints Card Reports no additional complaints Resp Reports no additional complaints GI Reports no additional complaints Reports no additional complaints Physical exam (Primary Care) Vital Signs: Last Vital Signs BP 122/74 02/18/25 12:24 Tobacco/Smoking Status: Tobacco use Status Tobacco use date assessed 01/10/25 02/18/25 12:28 Patient Tobacco Use Status Former Tobacco user 02/18/25 12:28 Tobacco use type Cigarette 02/18/25 12:28 e-Cigarette/Vaping Use Never Used 02/18/25 12:28 PHQ-9: PHQ-9 Score PHQ-9: Total score 1 02/18/25 13:05 Depression Screening Interpretation: Negative Thrive Assessment: Date of Thrive Assessment Date Thrive assessed 02/11/25 02/18/25 12:28 Currently or been in a relationship where the following occur: I choose not to answer Const General: no acute distress HENMT Head: Yes normal to inspection Ears: hearing grossly normal bilaterally Mouth: Normal oral and palatal mucosa present Eyes General: appearance normal, both eyes and all related structures Neck Neck: Yes no lymphadenopathy and Yes supple Resp Effort & Inspection: normal respiratory effort Auscultation: clear to auscultation bilaterally Cardio Rhythm: regular rhythm Heart sounds: S1 normal heart sound present and S2 normal heart sound present GI Inspection: Yes normal to inspection Palpation (GI): Soft to palpation Percussion: Yes normal to percussion Auscultation: normal bowel sounds Coding Level of Care Code Est Pt Prev Care 40-64y(86768) Diagnoses Carpal tunnel syndrome G56.00 Anxiety F41.9 Hyperlipidemia E78.5 HTN (hypertension) I10 COPD (chronic obstructive pulmonary disease) J44.9 Additional Codes NEFTALY-7 Assessment Billing - NEFTALY-7 Assessment Tool: NEFTALY-7 Assessment 30337 ([id number]) PHQ-9 - 28765 - PHQ-9 Billing: Yes ([id number]) Assessment & Plan Assessment & Plan (1) Carpal tunnel syndrome: Code(s): G56.00 - Carpal tunnel syndrome, unspecified upper limb Category: Medical Plan: obtain EMG/NCS (2) Anxiety: Code(s): F41.9 - Anxiety disorder, unspecified Category: Medical Plan: Continue current medications established with Psychiatry (3) Hyperlipidemia: Code(s): E78.5 - Hyperlipidemia, unspecified Category: Medical Plan: Continue statin check blood work (4) HTN (hypertension): Code(s): I10 - Essential (primary) hypertension Category: Medical Plan: Continue current medications (5) COPD (chronic obstructive pulmonary disease): Comment: mild, albuterol PRN Code(s): J44.9 - Chronic obstructive pulmonary disease, unspecified Category: Medical Plan: Mild, uses albuterol PRN Orders: Orders NE electromyogram (EMG) Today G56.00 - Carpal tunnel syndrome, unspecified upper limb, G56.03 - Carpal tunnel syndrome, bilateral upper limbs NE nerve conduction velocity Today G56.00 - Carpal tunnel syndrome, unspecified upper limb Comprehensive [place]. Panel Fast Today Z00.00 - Encounter for general adult medical examination without abnormal findings Complete Blood Count Auto Diff Today Z00.00 - Encounter for general adult medical examination without abnormal findings Lipid Panel Today Z00.00 - Encounter for general adult medical examination without abnormal findings TSH reflex Free T4 Today Z00.00 - Encounter for general adult medical examination without abnormal findings Vitamin D 25-OH Total Today Z00.00 - Encounter for general adult medical examination without abnormal findings Medications: Changed From insulin syr/ndl U100 half carl (BD Insulin Syringe Ultra-Fine (half unit)) 1 A WEEK 100 ea 1RF To insulin syr/ndl U100 half carl 1 A WEEK 100 ea 1RF Refilled rosuvastatin (Crestor) 40 mg PO DAILY 90 tabs 3RF amlodipine-benazepril 5-40 mg 1 cap PO DAILY 90 caps 3RF cyanocobalamin (vitamin B-12) 1,000 mcg IM Q4W 3 mL 12RF Discontinued gabapentin Discontinued Reason: Doctor's Order 300 mg PO BEDTIME 90 caps 3RF Breo Ellipta 100-25 mcg/dose (fluticasone furoate-vilanterol) Discontinued Reason: Doctor's Order 1 ea inhalation DAILY 60 ea 5RF NS
--- OUTSIDE RECORDS SUMMARY | 2025-02-18 12:38 | XMS_ITS | Clinical Summary ---
Author Organization [facility] it Address [address] [place] [address] Care Team Providers Care Design Consultant Name Role Phone Unavailable Primary Care Provider Unavailabl e Surgical History Surgery Date Site/Laterality Comments HYSTERECTOMY 1996 PROCEDURE: HISTORICAL VAGINAL HYSTERECTOMY W/O BSO; COMMENT: retained ovaries, for pain OTHER SURGICAL HISTORY PROCEDURE: [place] BLADDER INSTILLATION ANTICARCINOGENIC AGENT; COMMENT: bladder suspension TONSILLECTOMY PROCEDURE: HISTORICAL TONSILLECTOMY UPPER GASTROINTESTINAL ENDOSCOPY 02/21/2015 PROCEDURE: [place] UPPER GI ENDOSCOPY PERFORMED; COMMENT: Visually normal, [...] 08/06/2005 DX :Posttraumatic stress disorder Anorexia nervosa ([facility] V28) 12/06/2005 D X:Anorexia nervosa IBS (irritable bowel syndrome) 02/25/2015 D X:IBS (irritable bowel syndrome); COMMENT: Diarrhea predominant, onset approximately age 30. Family History Medical History Relation Name Comments Heart attack Father [place] x 6; double bypass, asthma, copd, heart [...] 2023-2 5 season) 2024 06/19/2021 Influenza Vaccine (#1) 2025 DTaP,Tdap,and Td Vaccines (3 - Td [...]
== END 2025-02-18 14:58 | disposition home or self-care (01) ==
LOC: HO.HMCC 11:47
PROVIDERS: Visit Provider Internal Medicine
DX: Z00.00 Encounter for general adult medical examination without abnormal findings (principal); G56.00 Carpal tunnel syndrome, unspecified upper limb; F41.9 Anxiety disorder, unspecified; E78.5 Hyperlipidemia, unspecified; I10 Essential (primary) hypertension; J44.9 Chronic obstructive pulmonary disease, unspecified

== ENCOUNTER 2025-02-18 11:46 | Outpatient (REF) | payer BC, SELFPAY ==
[2025-02-18 16:51] LABS: MANUAL DIFF FLAG NO
[2025-02-18 17:07] LABS: Hematocrit 38.5 % (37.0-47.0); Hemoglobin 13.0 g/dl (12.0-16.0); Imm Gran Abs Auto 0.01 X10*3/uL (0.00-0.03); Imm Gran Pct Auto 0.2 % (0.0-0.4); Lymphocytes Absolute Auto 1.8 X10*3/uL (1.2-4.9); Mean Corpuscular HGB Conc 33.8 g/dl (31.0-35.0); Mean Corpuscular Hemoglobin 31.9 pg (27.0-33.0); Mean Corpuscular Volume 94.6 fL (80.0-98.0); NRBC Abs Auto 0.000 X10*3/uL (0.0-0.012); NRBC Pct Auto 0.0 /100WBC (0.0-0.2); Platelet Count 331 X10*3/uL (160-400); Red Blood Count 4.07 X10*6/uL (4.20-5.50); White Blood Count 5.9 X10*3/uL (4.8-10.8)
[2025-02-18 17:12] LABS: Alanine Aminotransferase 120 U/L (0-31); Albumin Level 5.1 g/dL (3.5-5.0); Alkaline Phosphatase 82 U/L (39-117); Anion Gap 14 (12-20); Aspartate Amino Transferase 121 U/L (5-31); Blood Urea Nitrogen 17 mg/dL (9-16); Calcium 9.5 mg/dL (8.4-10.2); Carbon Dioxide 27 mmol/L (22-29); Chloride 102 mmol/L (96-108); Cholesterol 181 mg/dL (<200); Estimated Glomerular Filt Rate > 60; HDL Cholesterol 61 mg/dL (>40); Potassium 4.2 mmol/L (3.3-5.1); Sodium 139 mmol/L (135-145); Total Protein 7.8 g/dL (6.5-8.0); Triglycerides 165 mg/dL (<150)
== END 2025-02-18 11:47 | disposition home or self-care (01) ==
LOC: HO.HMGCLDS 11:46
PROVIDERS: PCP Internal Medicine; Visit Provider Internal Medicine
DX: Z00.00 Encounter for general adult medical examination without abnormal findings (principal); R20.0 Anesthesia of skin; G56.00 Carpal tunnel syndrome, unspecified upper limb; F41.9 Anxiety disorder, unspecified; E78.5 Hyperlipidemia, unspecified; I10 Essential (primary) hypertension; G56.03 Carpal tunnel syndrome, bilateral upper limbs
CPT/HCPCS: 36415; 80053; 80061; 82306; 84443; 85025; 96127

== ENCOUNTER 2025-04-09 08:12 | Outpatient (REF) | payer BC, SELFPAY ==
--- NOTE | ~2025-04-09 | US_ITS ---
CLINICAL HISTORY: R79.89 - Other specified abnormal findings of blood chemistry Exam: Ultrasound of the right upper quadrant of the abdomen. Comparison: None provided. Findings: Liver measures 17 cm in long axis. Simple cysts within the right lobe of the liver measures 9 x 7 x 6 mm in size. Generalized increased echotexture throughout the liver. No intrahepatic biliary ductal dilatation. Common bile duct is within normal limits. Gallbladder is unremarkable. Pancreas is unremarkable. No hydronephrosis of the right kidney. Prominent renal sinus fat. No free fluid. Impression: 1. Echogenic liver. This can be seen with fatty infiltration or medical liver disease. 2. Simple hepatic cyst. 3. No biliary dilation. This document has been electronically signed by: Jaron Newton MD on 04/09/2025 09:32:55
--- OUTSIDE RECORDS SUMMARY | 2025-04-09 08:17 | XMS_ITS | Clinical Summary ---
Author Organization [facility] it Address [address] [place] [address] Care Team Providers Care [facility] Attendant Name Role Phone Unavailable Primary Care Provider Unavailabl e Surgical History Surgery Date Site/Laterality Comments HYSTERECTOMY 1996 PROCEDURE: HISTORICAL VAGINAL HYSTERECTOMY W/O BSO; COMMENT: retained ovaries, for pain OTHER SURGICAL HISTORY PROCEDURE: [place] BLADDER INSTILLATION ANTICARCINOGENIC AGENT; COMMENT: bladder suspension TONSILLECTOMY PROCEDURE: HISTORICAL TONSILLECTOMY UPPER GASTROINTESTINAL ENDOSCOPY 02/21/2015 PROCEDURE: [place] UPPER GI ENDOSCOPY PERFORMED; COMMENT: Visually normal, [...] 08/06/2005 DX :Posttraumatic stress disorder Anorexia nervosa ([facility] V28) 12/06/2005 D X:Anorexia nervosa IBS (irritable bowel syndrome) 02/25/2015 D X:IBS (irritable bowel syndrome); COMMENT: Diarrhea predominant, onset approximately age 30. Family History Medical History Relation Name Comments Heart attack Father [place] x 6; double bypass, asthma, copd, heart [...] Years (1 of 2 - PCV) 1989 Cervical Cancer Screening: P ap Smear 1991 Zoster Vaccines (1 of 2) 01/09/2020 Breast Cancer Screening 12/16/2020 12/17/19 19, 12/16/2017, 12/03/2017 Cholesterol Screening (Lipid Panel) 07/18/2022 Colorectal Cancer Screening: Colonoscopy 07/18/2022 HIV Screening 07/18/2022 Hepatitis C Screening 07/18/2022 Social Influencers of Health Screening 07/18/2022 Hypertension/CHF/CAD Annual BMP Blood Test 07/31/2022 COVID-19 Vaccine (2 - 2023-2 5 season) 2024 06/19/2021 Depression Screening 08/15/2024 Influenza Vaccine (#1) 2025 DTaP,Tdap,and Td Vaccines [...]
--- NOTE | 2025-04-09 08:55 | EMG_ITS ---
Patient Complaints: Paresthesia of bilateral upper extremity, Rule out Carpal tunnel syndrome Procedure done: NCV/ EMG Bilateral median and ulnar motor and sensory studies were performed bilateral radial sensory and median and lateral antecubital brachial sensory studies were performed an EMG needle examination was performed. Impression: 1. Mild bilateral median neuropathy across carpal tunnel 2. Mild bilateral ulnar neuropathy across elbow MTDD
[2025-04-09 11:45] LABS: HBS Num1 0.00 mIU/mL (0-7.99); HBc Num1 0.04 S/CO (0.00-0.79); HBsAGNum1 0.40 S/CO (0.00-0.99); Hepatitis A Antibody IgM 0.22 Index (0-0.79); Hepatitis B Surface Antigen Negative (Negative); ~HepC Num1 0.12 S/CO (0.00-0.79); ~Hepatitis A Antibody IgM Nonreactive (Nonreactive); ~Hepatitis B Surface Antibody NONREACTIVE (Nonreactive); ~Hepatitis C Antibody Nonreactive (Nonreactive)
[2025-04-09 11:49] LABS: Alanine Aminotransferase 48 U/L (0-31); Albumin Level 5.1 g/dL (3.5-5.0); Alkaline Phosphatase 81 U/L (39-117); Aspartate Amino Transferase 45 U/L (5-31); Total Protein 7.8 g/dL (6.5-8.0)
== END 2025-04-09 08:13 | disposition home or self-care (01) ==
LOC: HO.US 08:12
PROVIDERS: PCP Internal Medicine; Visit Provider Internal Medicine
DX: G56.03 Carpal tunnel syndrome, bilateral upper limbs (principal); R79.89 Other specified abnormal findings of blood chemistry; Z11.59 Encounter for screening for other viral diseases; Z01.84 Encounter for antibody response examination
CPT/HCPCS: 36415; 76705; 80076; 86704; 86706; 86709; 86803; 87340; 95886; 95913

== ENCOUNTER → 2025-04-09 08:14 | Outpatient (BNV) | payer BC, SELFPAY | PROVIDERS: PCP Internal Medicine; Visit Provider Radiology Diagnostic Radiology | DX: R79.89 Other specified abnormal findings of blood chemistry (principal); K76.89 Other specified diseases of liver | CPT/HCPCS: 76705 ==

== ENCOUNTER → 2025-04-09 08:55 | Outpatient (BNV) | payer BC, SELFPAY | PROVIDERS: PCP Internal Medicine; Visit Provider Psychiatry & Neurology Neurology | DX: R20.2 Paresthesia of skin (principal) | CPT/HCPCS: 95886; 95913 ==

== ENCOUNTER 2025-06-06 10:26 | Outpatient (AMB) | payer BC, SELFPAY ==
--- NOTE | 2025-06-06 10:31 | MHC.OFFVIS ---
Vital Signs 06/06/25 10:32 Height 5 ft 5 in Intake Visit Reasons: MARKETING ANALYTICS SPECIALIST-Carpal tunnel syndrome, bilateral hand Intake Note: Juana is a 55 year old right hand dominant female who presents today as a New Patient for evaluation of Bilateral Hand Numbness & Tingling. Pt states this only happens at night time which is effecting her sleep. Pt states this has been going on for over a year. 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 Impression 04/09/25: 1. Mild bilateral median neuropathy across carpal tunnel 2. Mild bilateral ulnar neuropathy across elbow Allergies perflutren Adverse Reaction (Verified 06/06/25 10:32) Back Pain HPI HPI MARKETING ANALYTICS SPECIALIST-Carpal tunnel syndrome, bilateral hand: Details: Juana is a 55 year old right hand dominant female who presents today as a New Patient for evaluation of Bilateral Hand Numbness & Tingling. Pt states this only happens at night time which is effecting her sleep. Pt states this has been going on for over a year. 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 Impression 04/09/25: 1. Mild bilateral median neuropathy across carpal tunnel 2. Mild bilateral ulnar neuropathy across elbow PFSH Medical History Elevated LFTs Breast calcification, left PONV (postoperative nausea and vomiting) Abscess, intra-abdominal, postoperative Pelvic abscess in female Acute perforated appendicitis Asthma Hyperlipidemia Bilateral hand numbness Diarrhea Eating disorder HTN (hypertension) COPD (chronic obstructive pulmonary disease) Anxiety Left ankle sprain Surgical History Hx of colonoscopy History of laparoscopic appendectomy History of bladder suspension procedure History of thyroidectomy Hx of hysterectomy Family History Brother Substance use disorder Brother Substance use disorder Mother Mental health disorder [place] (myocardial infarction), Onset Age: 64 Social History Household Members: Spouse Household Members Other:: , 3 children, 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 Are you a primary career technical education instructor to a significant other at home: No Do you presently have visiting nurse or other home services: No Alcohol intake: current Alcohol intake frequency: a few times a month Alcohol type: wine Patient Tobacco Use Status: Former Tobacco user Tobacco use type: Cigarette e-Cigarette/Vaping Use: Never Used Advance Directives Date on File: 05/18/22 service: No Current occupational status: employed Current occupation: day care Cognitive needs: No Hearing needs: No Vision needs: Yes Review of Systems Const All systems reviewed & are unremarkable except as noted in HPI and below Physical Exam Extrem Other: Neuro: Normal sensation of the tips of all digits of bilateral hands in the office today No thenar or intrinsic wasting. Good APB muscle firing and good finger cross. Vascular: Capillary refill brisk. ROM: Patient can make a fist and extend all their digits. Skin: No lacerations or abrasions noted. General: No ecchymosis. No erythema or evidence of infection. Assessment & Plan Assessment & Plan (1) Bilateral carpal tunnel syndrome: Code(s): G56.03 - Carpal tunnel syndrome, bilateral upper limbs Category: Medical (2) Cubital tunnel syndrome, bilateral: Code(s): G56.23 - Lesion of ulnar nerve, bilateral upper limbs Category: Medical Plan 1. Bilateral carpal tunnel syndrome 2. Bilateral cubital tunnel syndrome I educated the patient about the condition. I discussed both operative and nonoperative treatment options. The patient would like to proceed with surgery. The risks and benefits of operative treatment were discussed with the patient and the patient wishes to proceed with surgery. These risks include, but are not limited to, risk of damage to blood vessels, nerves, tendons, infection, recurrence, incomplete relief of preoperative symptoms, persistent pain, possible need for further surgery, and the risks associated with regional blocks and/or anesthesia. Plan is to take the patient to the operating room at some point in the next few weeks for the following procedures: 1. Left cubital tunnel release under general 2. Left carpal tunnel release under general All of the preoperative paperwork including the consent was discussed today. All of the patient's questions were answered in the clinic today. The patient understands that they will be in contact with our surgical supply assistant to discuss scheduling their procedure. Patient denies diabetes, blood thinners, asthma, heart issues, lung issues, kidney issues, or current smoking. Medications: Discontinued ketoconazole 2% Discontinued Reason: Doctor's Order 1 appl topical DAILY 15 grams 0RF Coding Level of Care Code New Pt Level 4 (68355) Diagnoses Bilateral carpal tunnel syndrome G56.03 Cubital tunnel syndrome, bilateral G56.23
--- OUTSIDE RECORDS SUMMARY | 2025-06-06 12:32 | XMS_ITS | Clinical Summary ---
Author Organization [facility] it Address [address] [place] [address] Care Team Providers Care Intelligence Chief Name Role Phone Unavailable Primary Care Provider [...] 08/06/2005 DX :Posttraumatic stress disorder Anorexia nervosa ([facility] V28) 12/06/2005 D X:Anorexia nervosa IBS (irritable [...] Health Maintenance Due Date Last Done Comments Colorectal Cancer Screening: Colonoscopy 1970 Hepatitis B Vaccines (1 of 3 - 19+ 3-dose series) 1989 Pneumococcal Vaccine: 50+ Years (1 of 2 - PCV) 1989 Cervical Cancer Screening: P ap Smear 1991 RSV Immunization Adult Patients (1 - Risk 50-74 years 1-dose series) 01/09/2020 Zoster Vaccines (1 of 2) 01/09/2020 Breast Cancer Screening 12/16/2020 12/17/19 19, 12/16/2017, 12/03/2017 Cholesterol Screening (Lipid Panel) 07/18/2022 HIV Screening 07/18/2022 Hepatitis C Screening 07/18/2022 Social Influencers of Health Screening 07/18/2022 Hypertension/CHF/CAD Annual BMP Blood Test 07/31/2022 Depression Screening 08/15/2024 COVID-19 Vaccine (2 - 2024-2 6 season) 2025 06/19/2021 Influenza Vaccine (#1) 2025 DTaP,Tdap,and Td [...]
== END 2025-06-06 11:49 | disposition home or self-care (01) ==
LOC: HO.HOS 10:26
PROVIDERS: PCP Internal Medicine
DX: G56.03 Carpal tunnel syndrome, bilateral upper limbs (principal); G56.23 Lesion of ulnar nerve, bilateral upper limbs
CPT/HCPCS: 99204

== ENCOUNTER 2025-06-29 09:56 | Outpatient (AMB) | payer BC, SELFPAY ==
[2025-06-29 09:59] VITALS: BP 134/90; PULSE 108; RESP 16; TEMP 36.8; O2SAT 100
--- NOTE | 2025-06-29 09:59 | AM.OFFWIN_ITS ---
Intake Vital Signs 3 06/29/25 09:59 Height 5 ft 5 in BMI Reason not done Patient refused/unable BP 134/90 H Blood Pressure Location Rt brachial Position Sitting Respiration 16 Pulse 108 H Pulse Source Pulse Oximeter Temp 98.3 F Temp Source Oral Pulse Oximetry (%) 100 Oxygen Delivery Method Room Air Intake Visit Reasons: EP Possible ring worm Intake Note: Pt is here today has a ? ring worm on upper Rt arm Patient Tobacco Use Status: Former Tobacco user Agency Cashier Required: No Allergies perflutren Adverse Reaction (Verified 06/29/25 10:05) Back Pain Medication List - Last Reconciled 06/29/25 by Bee Erickson, [facility]- albuterol sulfate 90 mcg/actuation 2 puffs inhalation Q6H PRN amlodipine-benazepril 5-40 mg 1 cap PO DAILY clotrimazole-betamethasone 1-0.05 % 1 appl topical BID cyanocobalamin (vitamin B-12) 1,000 mcg IM Q4W lamotrigine 100 mg PO DAILY rosuvastatin (Crestor) 40 mg PO DAILY syringe with needle, safety (BD Integra Syringe) Use to inject vitamin B-12 monthly trazodone 50 mg PO DAILY venlafaxine ER (Effexor XR) 75 mg (2 x 37.5 mg) PO BEDTIME HPI HPI Comments 2 History of Present Illness0 Details Chief Complaint Patient presents with concerns that she may have ringworm. History The patient is a 55-year-old female presenting with concerns about a persistent skin lesion suspected to be ringworm. Tinea Corporis: - The patient was treated for ringworm a t an urgent care facility two weeks ago. - At that time, she was prescribed oral prednisone, which was also intended for bronchitis. - She has been using a topical clotrimaz ole-betamethasone cream prescribed on June 13, but it has not been effective, and the lesion remains in the same location. - The patient reports the lesion is extr lois itchy and has appeared very red and swollen. - The patient is concerned because she h as surgery scheduled next month and fears it will be canceled if the lesion is present. Past Medical History - Bronchitis, treated two weeks prior. - Tinea corporis, treated two weeks prio r at urgent care. - Upcoming surgery scheduled for next mo nt. Review of Systems - Integumentary: Reports an extremely it kristen, red, and swollen lesion. - Respiratory: No current symptoms repor fina, but notes a recent history of bronchitis. Physical Exam Right upper arm Medical Decision Making The patient is a 55-year-old female with a clear clinical presentation of tinea corporis, which is persistent despite previous treatment attempts. She has already failed topical treatment with clotrimazole-betamethasone cream. Given her upcoming surgery and the need for rapid resolution, systemic antifungal therapy is warranted. I will prescribe oral fluconazole 200 mg once a week for four weeks, as well as a new topical, naftifine 2% cream, to be applied daily for two weeks to ensure the infection is fully treated before her procedure. She was advised to continue her current cream until it is finished. Plan 1. Tinea Corporis - The patient has failed topical treatme nt with clotrimazole-betamethasone cream for her ringworm. - Given the persistence of the lesion an d the patient's upcoming surgery, systemic therapy is indicated. - Prescribe fluconazole 200 mg, one tabl et to be taken orally once a week for four weeks. - Prescribe naftifine 2% cream to be vladimir lied daily for two weeks. - The patient was advised to continue us ing her current topical cream until it is finished. - Prescriptions will be sent to the [facility]'s preferred pharmacy, [facility]. - The patient was instructed to seek fol low-up care if the condition does not improve. Patient Instructions - You will be prescribed an oral medicat ion, fluconazole, which you should take once a week for four weeks. - You will also receive a new cream, naf tifine, which you should apply to the rash once a day for two weeks. - Continue using your current clotrimazo le-betamethasone cream until you run out. - The prescriptions will be sent to your [facility] pharmacy. - Please let us know if the rash does no t get better. Consent The patient provided verbal consent to have a picture of the skin lesion taken for her medical chart. Patient was informed and verbally consented to the use of an ambient scribe for clinic note documentation during this visit. [facility] Medical History Elevated LFTs Breast calcification, left PONV (postoperative nausea and vomiting) Abscess, intra-abdominal, postoperative Pelvic abscess in female Acute perforated appendicitis Asthma Hyperlipidemia Bilateral hand numbness Diarrhea Eating disorder HTN (hypertension) COPD (chronic obstructive pulmonary disease) Anxiety Left ankle sprain Surgical History Hx of colonoscopy History of laparoscopic appendectomy History of bladder suspension procedure History of thyroidectomy Hx of hysterectomy Family History Brother Substance use disorder Brother Substance use disorder Mother Mental health disorder [place] (myocardial infarction), Onset Age: 64 Social History Household Members: Spouse Household Members Other:: , 3 children, 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 Are you a primary wound care rn to a significant other at home: No Do you presently have visiting nurse or other home services: No Alcohol intake: current Alcohol intake frequency: a few times a month Alcohol type: wine Patient Tobacco Use Status: Former Tobacco user Tobacco use type: Cigarette e-Cigarette/Vaping Use: Never Used Advance Directives Date on File: 05/18/22 service: No Current occupational status: employed Current occupation: day care Cognitive needs: No Hearing needs: No Vision needs: Yes Physical Exam Vital Signs: Last Vital Signs Temp 98.3 F 06/29/25 09:59 Pulse 108 H 06/29/25 09:59 Resp 16 06/29/25 09:59 BP 134/90 H 06/29/25 09:59 Pulse Ox 100 06/29/25 09:59 Oxygen Delivery Method Room Air 06/29/25 09:59 Assessment & Plan Assessment & Plan (1) Tinea corporis: Code(s): B35.4 - Tinea corporis Plan . Medications: New 2 fluconazole 200 mg (2 x 100 mg) PO QWEEK 8 tabs 0RF 4 weeks naftifine 2% 1 appl topical BEDTIME 60 grams 0RF 2 weeks Discontinued 2 clotrimazole-betamethasone 1-0.05 % Discontinued Reason: Patient Completed Course 1 appl topical BID 15 grams 0RF Coding Level of Care Code Est Pt Level 3 (50838) Diagnoses Tinea corporis B35.4
== END 2025-06-29 10:25 | disposition home or self-care (01) ==
PROVIDERS: PCP Internal Medicine; Visit Provider Nurse Practitioner Family
DX: B35.4 Tinea corporis (principal)

== ENCOUNTER 2025-07-06 09:57 | Outpatient (AMB) | payer BC, SELFPAY ==
--- OUTSIDE RECORDS SUMMARY | 2025-07-06 10:00 | XMS_ITS | Clinical Summary ---
Author Organization [facility] it Address [address] [place] [address] Care Team Providers Care Awning Maker Name Role Phone Unavailable Primary Care Provider Unavailabl e Surgical History Surgery Date Site/Laterality Comments HYSTERECTOMY 1996 PROCEDURE: HISTORICAL VAGINAL HYSTERECTOMY W/O BSO; COMMENT: retained ovaries, for pain OTHER SURGICAL HISTORY PROCEDURE: CT BLADDER INSTILLATION ANTICARCINOGENIC AGENT; COMMENT: bladder suspension TONSILLECTOMY PROCEDURE: HISTORICAL TONSILLECTOMY UPPER GASTROINTESTINAL ENDOSCOPY 02/21/2015 PROCEDURE: CT UPPER GI ENDOSCOPY PERFORMED; COMMENT: Visually normal, [...] 08/06/2005 DX :Posttraumatic stress disorder Anorexia nervosa ([facility] V28) 12/06/2005 D X:Anorexia nervosa IBS (irritable bowel syndrome) 02/25/2015 D X:IBS (irritable bowel syndrome); COMMENT: Diarrhea predominant, onset approximately age 30. Family History Medical History Relation Name Comments Heart attack Father RI x 6; double bypass, asthma, copd, heart transplant-pacemaker, pul embolism Lung cancer Father Depression Mother alive Lung cancer Paternal Grandmother Lung cancer Uncle Breast cancer Neg Hx Relation Name Status Comments Father Mother Paternal Grandmother Uncle Social History Tobacco Use Types Packs/Day Years Used Date Smoking Tobacco: Former Cigarettes 0.5 Q uit: 04/15/2015 Smokeless Tobacco: Never Quit: [...]
--- NOTE | 2025-07-06 10:12 | MHC.OFFWIV ---
Intake Vital Signs 07/06/25 10:13 Height 5 ft 5 in BMI Reason not done Patient refused/unable BP 136/80 Blood Pressure Location Rt brachial Position Sitting Respiration 16 Pulse 90 Pulse Source Pulse Oximeter Temp 98.2 F Temp Source Oral Pulse Oximetry (%) 98 Oxygen Delivery Method Room Air Intake Visit Reasons: EP-Bronchitis? Intake Note: Pt is here today continue with her cough and chest congestion Patient Tobacco Use Status: Former Tobacco user Allergies perflutren Adverse Reaction (Verified 07/06/25 10:13) Back Pain Medication List - Last Reconciled 07/06/25 by Alan Townsend MD albuterol sulfate 90 mcg/actuation 2 puffs inhalation Q6H PRN amlodipine-benazepril 5-40 mg 1 cap PO DAILY cyanocobalamin (vitamin B-12) 1,000 mcg IM Q4W fluconazole 200 mg (2 x 100 mg) PO QWEEK 4 weeks lamotrigine 100 mg PO DAILY levofloxacin 500 mg PO Q24H 7 days naftifine 2% 1 appl topical BEDTIME 2 weeks prednisone 4 tabs daily for 4 days, 3 tabs daily for 2 days, 2 tabs daily for 2 days, 1 tab daily for 2 days PO daily; 10 days rosuvastatin (Crestor) 40 mg PO DAILY syringe with needle, safety (BD Integra Syringe) Use to inject vitamin B-12 monthly trazodone 50 mg PO DAILY venlafaxine ER (Effexor XR) 75 mg (2 x 37.5 mg) PO BEDTIME HPI EP-Bronchitis? 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 She has no upper respiratory symptoms such as nasal congestion or rhinitis. Denies fevers or chills and feels well besides cough cough is productive she went to an urgent care and was given a Z-Michael and 5 days of prednisone. Was also given benzonatate which did not help at all. Former smoker but no longer smokes. [facility] Medical History Elevated LFTs Breast calcification, left PONV (postoperative nausea and vomiting) Abscess, intra-abdominal, postoperative Pelvic abscess in female Acute perforated appendicitis Asthma Hyperlipidemia Bilateral hand numbness Diarrhea Eating disorder HTN (hypertension) COPD (chronic obstructive pulmonary disease) Anxiety Left ankle sprain Surgical History Hx of colonoscopy History of laparoscopic appendectomy History of bladder suspension procedure History of thyroidectomy Hx of hysterectomy Family History Brother Substance use disorder Brother Substance use disorder Mother Mental health disorder [place] (myocardial infarction), Onset Age: 64 Social History Household Members: Spouse Household Members Other:: , 3 children, 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 Are you a primary physician locums urgent care to a significant other at home: No Do you presently have visiting nurse or other home services: No Alcohol intake: current Alcohol intake frequency: a few times a month Alcohol type: wine Patient Tobacco Use Status: Former Tobacco user Tobacco use type: Cigarette e-Cigarette/Vaping Use: Never Used Advance Directives Date on File: 05/18/22 service: No Current occupational status: employed Current occupation: day care Cognitive needs: No Hearing needs: No Vision needs: Yes Review of Systems Narrative See HPI Physical Exam Vital Signs: Last Vital Signs Temp 98.2 F 07/06/25 10:13 Pulse 90 07/06/25 10:13 Resp 16 07/06/25 10:13 BP 136/80 07/06/25 10:13 Pulse Ox 98 07/06/25 10:13 Oxygen Delivery Method Room Air 07/06/25 10:13 Const General: no acute distress and well developed Nutritional Appearance: well nourished Orientation/consciousness: patient oriented x3 HEENT Head: Yes normocephalic and Yes atraumatic Eyes General: appearance normal, both eyes and all related structures Pupils: Equal, round and reactive pupils present EOM: EOMs intact bilaterally Resp Other: secretions sounds bilaterally. No diminished breath sounds no crackles or wheezing Effort & Inspection: normal respiratory effort Cardio Rate: regular rate Rhythm: regular rhythm Heart sounds: S1 normal heart sound present, S2 normal heart sound present, no gallops, no murmurs and no rubs Neuro General: patient oriented x3 and gait normal Cranial nerves: Yes Equal, round and reactive pupils present Psych Affect: normal affect Assessment & Plan Assessment & Plan (1) Bronchitis: Code(s): J40 - Bronchitis, not specified as acute or chronic Plan: bronchitis versus COPD exacerbation will give her a longer course of prednisone as taper will give her levofloxacin rather than azithromycin she notes that she has not been using her albuterol inhaler and I recommended she take this 4 times a day will symptomatic. Call or return to office if worsening or not improving Medications: New levofloxacin 500 mg PO Q24H 7 tabs 0RF 7 days prednisone 4 tabs daily for 4 days, 3 tabs daily for 2 days, 2 tabs daily for 2 days, 1 tab daily for 2 days PO daily; 28 tabs 0RF 10 days Coding Level of Care Code Est Pt Level 3 (95840) Diagnoses Bronchitis J40
[2025-07-06 10:13] VITALS: BP 136/80; PULSE 90; RESP 16; TEMP 36.8; O2SAT 98
== END 2025-07-06 11:06 | disposition home or self-care (01) ==
LOC: HO.HMCWIC 09:57
PROVIDERS: PCP Internal Medicine; Visit Provider Family Medicine
DX: J40 Bronchitis, not specified as acute or chronic (principal)

== ENCOUNTER 2025-08-06 09:44 | Outpatient (AMB) | payer BC, SELFPAY ==
--- NOTE | 2025-08-06 10:10 | A.OFFVIS_ITS ---
Vital Signs 08/06/25 10:12 Height 5 ft 5 in Weight 125 lb BMI 20.8 Intake Visit Reasons: Preop LT cubital/CTR 08/12/25 AR Intake Note: Juana is a 55 year old right hand dominant female who presents today pre- operatively for discussion of their Left Cubital & Carpal Tunnel Release scheduled for 08/12/[address] Vinson. Consents signed in office today. Allergies perflutren Adverse Reaction (Verified 08/06/25 10:12) Back Pain HPI HPI Preop LT cubital/CTR 08/12/25 AR: Details: Juana is a 55 year old right hand dominant female who presents today pre- operatively for discussion of their Left Cubital & Carpal Tunnel Release scheduled for 08/12/[address] Vinson. Consents signed in office today. No new medical diagnoses or medications since previous evaluation. Symptoms have progressed, and patient would really like to proceed with surgery. [facility] Medical History Elevated LFTs Breast calcification, left PONV (postoperative nausea and vomiting) Abscess, intra-abdominal, postoperative Pelvic abscess in female Acute perforated appendicitis Asthma Hyperlipidemia Bilateral hand numbness Diarrhea Eating disorder HTN (hypertension) COPD (chronic obstructive pulmonary disease) Anxiety Left ankle sprain Surgical History Hx of colonoscopy History of laparoscopic appendectomy History of bladder suspension procedure History of thyroidectomy Hx of hysterectomy Family History Brother Substance use disorder Brother Substance use disorder Mother Mental health disorder [place] (myocardial infarction), Onset Age: 64 Social History Household Members: Spouse Household Members Other:: , 3 children, 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 Are you a primary career discovery teacher to a significant other at home: No Do you presently have visiting nurse or other home services: No Alcohol intake: current Alcohol intake frequency: a few times a month Alcohol type: wine Patient Tobacco Use Status: Former Tobacco user Tobacco use type: Cigarette e-Cigarette/Vaping Use: Never Used Advance Directives Date on File: 05/18/22 service: No Current occupational status: employed Current occupation: day care Cognitive needs: No Hearing needs: No Vision needs: Yes Review of Systems Const All systems reviewed & are unremarkable except as noted in HPI and below Physical Exam Vital Signs: BMI result Body Mass Index 20.8 Extrem Other: Neuro: Normal sensation of the tips of all digits of bilateral hands in the office today No thenar or intrinsic wasting. Good APB muscle firing and good finger cross. Vascular: Capillary refill brisk. ROM: Patient can make a fist and extend all their digits. Skin: No lacerations or abrasions noted. General: No ecchymosis. No erythema or evidence of infection. Assessment & Plan Assessment & Plan (1) Bilateral carpal tunnel syndrome: Code(s): G56.03 - Carpal tunnel syndrome, bilateral upper limbs Category: Medical (2) Cubital tunnel syndrome, bilateral: Code(s): G56.23 - Lesion of ulnar nerve, bilateral upper limbs Category: Medical Plan 1. Bilateral carpal tunnel syndrome 2. Bilateral cubital tunnel syndrome I educated the patient about the condition. I discussed both operative and nonoperative treatment options. The patient would like to proceed with surgery. The risks and benefits of operative treatment were discussed with the patient and the patient wishes to proceed with surgery. These risks include, but are not limited to, risk of damage to blood vessels, nerves, tendons, infection, recurrence, incomplete relief of preoperative symptoms, persistent pain, possible need for further surgery, and the risks associated with regional blocks and/or anesthesia. Plan is to take the patient to the operating room at some point in the next few weeks for the following procedures: 1. Left cubital tunnel release under general 2. Left carpal tunnel release under general All of the preoperative paperwork including the consent was discussed today. All of the patient's questions were answered in the clinic today. The patient understands that they will be in contact with our surgical services asst to discuss scheduling their procedure. Patient denies diabetes, blood thinners, asthma, heart issues, lung issues, kidney issues, or current smoking. Coding Level of Care Code Est Pt Level 4 (46916) Diagnoses Bilateral carpal tunnel syndrome G56.03 Cubital tunnel syndrome, bilateral G56.23
[2025-08-06 10:12] VITALS: BMI 20.8
--- OUTSIDE RECORDS SUMMARY | 2025-08-06 10:34 | XMS_ITS | Clinical Summary ---
Author Organization [facility] it Address [address] [place] [address] Care Team Providers Care Corn Husker Name Role Phone Unavailable Primary Care Provider Unavailabl e Surgical History Surgery Date Site/Laterality Comments HYSTERECTOMY 1996 PROCEDURE: HISTORICAL VAGINAL HYSTERECTOMY W/O BSO; COMMENT: retained ovaries, for pain OTHER SURGICAL HISTORY PROCEDURE: GA BLADDER INSTILLATION ANTICARCINOGENIC AGENT; COMMENT: bladder suspension TONSILLECTOMY PROCEDURE: HISTORICAL TONSILLECTOMY UPPER GASTROINTESTINAL ENDOSCOPY 02/21/2015 PROCEDURE: GA UPPER GI ENDOSCOPY PERFORMED; COMMENT: Visually normal, [...] 08/06/2005 DX :Posttraumatic stress disorder Anorexia nervosa ([facility] V28) 12/06/2005 D X:Anorexia nervosa IBS (irritable bowel syndrome) 02/25/2015 D X:IBS (irritable bowel syndrome); COMMENT: Diarrhea predominant, onset approximately age 30. Family History Medical History Relation Name Comments Heart attack Father CT x 6; double bypass, asthma, copd, heart [...] on file Sexual Orientation Not on file Plan of Treatment Health Maintenance Due Date [...]
== END 2025-08-06 10:25 | disposition home or self-care (01) ==
LOC: HO.HOS 09:45
PROVIDERS: PCP Internal Medicine
DX: G56.03 Carpal tunnel syndrome, bilateral upper limbs (principal); G56.23 Lesion of ulnar nerve, bilateral upper limbs
CPT/HCPCS: 99024

== ENCOUNTER 2025-08-12 07:45 | Day surgery (SDC) | payer BC, SELFPAY ==
--- NOTE | 2025-08-06 12:26 | HO.ANESPROP2 ---
Documented by User: Caroline River NP 08/06/25 12:32 HPI - Anesthesia Eval Consult details Narrative: 55yo F for Left Cubital Tunnel Release, Carpal Tunnel Release Asthma/COPD with exac 06/2025 requiring abx and steroid. Former smoker PONV PMFSH Active Problems Active Problems: All Active Problems Tinea corporis (Acute) Cubital tunnel syndrome, bilateral (Acute) Elevated LFTs (Acute) Hx of colonoscopy (Acute) Bilateral carpal tunnel syndrome (Acute) Carpal tunnel syndrome (Acute) Bronchitis (Acute) COVID-19 (Acute) Prolonged QT interval (Acute) COVID-19 (Acute) Vertigo (Acute) PTSD (post-traumatic stress disorder) (Acute) Trochanteric bursitis of left hip (Acute) Upper respiratory infection (Acute) Encounter for screening for pneumonia (Acute) Flu-like symptoms (Acute) Breast calcification, left (Acute) Abscess, intra-abdominal, postoperative (Acute) Acute perforated appendicitis (Acute) Rib lesion (Acute) Hyperlipidemia (Acute) Annual physical exam (Acute) Bilateral hand numbness (Acute) History of bladder suspension procedure (Acute) History of thyroidectomy (Acute) Diarrhea (Acute) Hx of hysterectomy (Acute) Eating disorder (Acute) HTN (hypertension) (Acute) COPD (chronic obstructive pulmonary disease) (Acute) Anxiety (Acute) Urinary tract infection (Acute) Left ankle sprain (Acute) Pain of left calf (Acute) Left ankle injury (Acute) Past Medical History Medical History Elevated LFTs Breast calcification, left PONV (postoperative nausea and vomiting) Asthma Hyperlipidemia Eating disorder HTN (hypertension) COPD (chronic obstructive pulmonary disease) Anxiety Family History Family History Brother Substance use disorder Brother Substance use disorder Mother Mental health disorder NC (myocardial infarction), Onset Age: 64 Family history of problems with anesthesia: No Surgical History Surgical History History of esophagogastroduodenoscopy (EGD) Hx of colonoscopy History of laparoscopic appendectomy History of bladder suspension procedure History of thyroidectomy Hx of hysterectomy History of Problems with Anesthesia: Yes (PONV) Social History Social History Household Members: Spouse Household Members Other:: , 3 children, 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 If so, by whom?: No Are you DNR?: No Advance Directives: Yes Advance Directives Information Provided: No Advance Directives on File: Yes Advance Directives Date on File: 05/18/22 Patient : No : No service: No Current occupational status: employed Current occupation: day care Cognitive needs: No Hearing needs: No Vision needs: Yes Meds Allergies Allergy/AdvReac Type Severity Reaction Status Date / Time perflutren AdvReac Intermediate Back Pain Verified 08/07/25 08:22 Home Medications ?Medication ?Instructions ?Recorded ?Confirmed ?Last Taken ?Type lamotrigine 100 mg tablet 100 mg PO DAILY 01/10/25 08/07/25 08/12/25 History Exam Pertinent Lab Results Pertinent Lab Results: Laboratory Tests 02/18/25 13:44 WBC 5.9 Hgb 13.0 Hct 38.5 Plt Count 331 D Sodium 139 Potassium 4.2 D Chloride 102 Carbon Dioxide 27 BUN 17 H Creatinine 0.93 Narrative Narrative: EKG 12/2024 Vent. Rate : 105 BPM Atrial Rate : 105 BPM P-R Int : 168 ms QRS Dur : 86 ms QT Int : 348 ms P-R-T Axes : 40 55 11 degrees QTcB Int : 459 ms Sinus tachycardia T wave abnormality, consider inferior ischemia Abnormal ECG When compared with ECG of 21-Oct-2011 09:48, No significant changes seen ECHO 2023 Conclusions: - The left ventricular systolic function is low normal. The calculated ejection fraction is 53% by biplane method. - No obvious valvular pathology seen on this study. Assessment and Plan Assessment Anesthesia Assessment: Chart Reviewed Final Anesthetic Review Family History of Problems with Anesthesia: No History of Problems with Anesthesia: Yes (PONV) Documented by User: Carly Rodríguez MD 08/12/25 08:04 PMFSH Past Medical History Medical History Elevated LFTs Breast calcification, left PONV (postoperative nausea and vomiting) Asthma Hyperlipidemia Eating disorder HTN (hypertension) COPD (chronic obstructive pulmonary disease) Anxiety Family History Family History Brother Substance use disorder Brother Substance use disorder Mother Mental health disorder NC (myocardial infarction), Onset Age: 64 Surgical History Surgical History History of esophagogastroduodenoscopy (EGD) Hx of colonoscopy History of laparoscopic appendectomy History of bladder suspension procedure History of thyroidectomy Hx of hysterectomy Social History Social History Household Members: Spouse Household Members Other:: , 3 children, 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 If so, by whom?: No Are you DNR?: No Advance Directives: Yes Advance Directives Information Provided: No Advance Directives on File: Yes Advance Directives Date on File: 05/18/22 Patient : No : No service: No Current occupational status: employed Current occupation: day care Cognitive needs: No Hearing needs: No Vision needs: Yes Meds Allergies Allergy/AdvReac Type Severity Reaction Status Date / Time perflutren AdvReac Intermediate Back Pain Verified 08/07/25 08:22 Home Medications ?Medication ?Instructions ?Recorded ?Confirmed ?Last Taken ?Type lamotrigine 100 mg tablet 100 mg PO DAILY 01/10/25 08/07/25 08/12/25 History Exam Airway Mallampati Class: II TM Dist: >3cm Neck ROM: Full Heart: rrr Lungs: cta Assessment and Plan Assessment Anesthesia Assessment: Anesthesia Plan Discussed Final Anesthetic Review NPO: Yes ASA Class: III Final Preanesthetic Review: No Changes in Pt Med Stat, Meds/Allgs Chart Reviewed, Consent Obtained/Reviewed and Anes Risks/Benef Reviewed Patient Risk: Intermediate Procedure Risk: Intermediate Anesthetic Plan Anesthetic Plan: GA and Agree w/ Assess. and Plan Disposition: Standard PACU
[2025-08-07 08:24] VITALS: BMI 20.8
[2025-08-12] VITALS (7 sets, daily range): BP systolic 96–130; BP diastolic 59–73; PULSE 98–120; RESP 16; TEMP 36.2–37.2; O2SAT 91–99; BMI 20.8
--- NOTE | 2025-08-12 07:35 | MHC.SHP ---
Pre-Procedural Eval Section A - 24 Hr Update-Section A only Date of Service: 08/12/25 The patient is an INPATIENT: No Changes since office visit: No Cold of Flu in the past 2 weeks, No New Medical Problems, No Changes in Medication and No Patient answered all questions The patient has been examined within 24 hours of the surgical procedure. The History & Physical has been completed within 30 days and I have reviewed it.: Yes Section B - Complete if H&P > 30 days Chief Complaint: lesion of ulnar,carpal tunnel, mf mass exc Allergies: Allergies Allergy/AdvReac Type Severity Reaction Status Date / Time perflutren AdvReac Intermediate Back Pain Verified 08/07/25 08:22 Exam Exam Comment: The patient was seen in preop hold and complains of a mass on the volar ulnar aspect of the base of the middle finger. She says it has been there for a few years and she very much finds it bothersome and would like to have it removed. She can make a fist and extend all of her digits. 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 The mass is fairly large measuring about 9 mm in length by about 6 mm in diameter Plan Diagnosis/Plan: Unchanged I have reviewed the history and physical and performed a pertinent physical examination on my patient. No changes have occurred unless specified. Assessment and plan: 1. Left cubital tunnel syndrome 2. Left carpal tunnel syndrome 3. Left middle finger soft tissue mass We discussed operative and non operative treatment options and she wishes to have surgery for all 3 conditions. The risks and benefits of operative treatment were discussed with the patient and the patient wishes to proceed with surgery. These risks include, but are not limited to risk of damage to blood vessels, nerves, tendons, infection, recurrence, incomplete relief of preoperative symptoms, persistent pain, possible need for further surgery and the risks associated with regional blocks and anesthesia. The plan is to take the patient to the operating room today for the following procedures: 1. Left cubital tunnel release 2. Left carpal tunnel release 3. Left middle finger mass excision All of the preoperative paperwork including the consent was filled out today. All the patient's questions were answered. Time Spent With Patient Time: Total time managing care of this patient today ____ minutes.
--- NOTE | 2025-08-12 07:36 | W.PM.OPN ---
Operative Note Operative Note Date of Service: 08/12/25 Narrative: Operative Note Narrative: Preop diagnosis: 1. Left Cubital tunnel syndrome 2. Left carpal tunnel syndrome 3. Left middle finger soft tissue mass Postop diagnosis: Same Procedure: 1. Left Cubital Tunnel Release 2. Left carpal tunnel release 3. Left middle finger soft tissue mass excision Surgeon: Ella Vinson MD [employer] Manager: None Anesthesia: General Anesthesia Findings: The mass in the middle finger was cystic in nature, filled with clear viscous fluid and consistent with a retinacular ganglion. At the elbow the patient was found to have an anconeus epitrochlearis within the cubital tunnel which likely contributed to her symptoms. Implants: none Tourniquet time: 32 minutes EBL: 5.0 ml Specimen: Left middle finger soft tissue mass sent for pathology Drains: None Complications: None Disposition: Brought to the recovery room in stable condition Plan: Follow-up in 10-14 days for wound check, and suture removal , check pathology Indications: The patient is 55 years old with left cubital tunnel syndrome and left carpal tunnel syndrome . The risks and benefits of operative treatment, including but not limited to risk of damage to blood vessels, nerves, tendons, infection, recurrence, persistent pain or numbness, incomplete resolution of preoperative symptoms, or need for further surgery were discussed with the patient and they wished to proceed with surgery. Procedure: Once consent was obtained patient was brought back to the operating suite and placed in the operating table in a supine position. Perioperative antibiotics and anesthesia was administered by the anesthesia team. The limb was prepped and draped in a standard surgical fashion, and a sterile tourniquet applied to the proximal aspect of the left upper extremity. The limb was elevated exsanguinated with Esmarch bandage and the tourniquet inflated to 250 mm of mercury for a total tourniquet time of 32 minutes. Once assured that we had a good block, a 2.0 cm longitudinal incision was made centered over the left carpal tunnel. The incision was made through the skin to the subcutaneous tissues using a #15 blade. Dissection was made down to the level of the transverse carpal ligament with care being taken to protect the palmar cutaneous nerve. Once the transverse carpal ligament was clearly visualized, a longitudinal incision was made in the transverse carpal ligament 1st using a #15 blade, then using tenotomy scissors under direct visualization. Care was taken to look for and protect the motor branch of the median nerve when seen in this area. Once satisfied with our carpal tunnel release the wound was irrigated with normal saline. I turned my attention to the left middle finger. Oblique incision was made extending from the volar ulnar base of the middle finger obliquely across the proximal phalanx. The incision was made through the skin the subcutaneous tissues using a 15. Blade. I then carefully dissected down to the soft tissue mass using iris scissors. The soft tissue mass was cystic in appearance and measured about 9 mm in length by 6 mm in diameter and was attached to the flexor tendon sheath and the proximal phalanx. It was filled with clear viscous fluid consistent with a ganglion.. It was carefully excised and removed from the patient placed on the back table to be sent for pathology. No further masses were appreciated. A 6 cm gently curved but longitudinally oriented incision was made centered over the cubital tunnel of the left upper extremity. Incision was made through the skin to the subcutaneous tissues using a # 15 Blade. I then dissected down to the level of the medial epicondyle and the cubital tunnel using tenotomy scissors. Care was taken to protect the medial antebrachial cutaneous nerve. The ulnar nerve was identified just posterior to the medial intermuscular septum. The ulnar nerve was released in a proximal to distal direction using tenotomy in iris scissors while directly visualizing and protecting the ulnar nerve. An anconeus epitrochlearis muscle was appreciated within the cubital tunnel, and was also released. The ulnar nerve was assessed as I passed the elbow through full flexion and extension and was found to remain stable within its groove. At this point the tourniquet was deflated and hemostasis obtained with a brief period of local pressure and bipolar electrocautery. The wounds were copiously irrigated with normal saline. The subcutaneous layer was closed with 4-0 Vicryl suture, and the skin edges were reapproximated with 5-0 nylon suture. The wounds were infiltrated with some 1% lidocaine with epinephrine for postop pain control and sterile dressings were applied. The patient appears to have tolerated the procedure well and with no complications. All digits were well vascularized at the conclusion of the case.
[2025-08-12] MEDS: Lactated Ringers 1,000 ML 100 ML IVCONT (08:08)
== END 2025-08-12 11:51 | disposition home or self-care (01) ==
PROVIDERS: PCP Internal Medicine; Visit Provider Orthopaedic Surgery
PROC: (CPT 64718; principal; 2025-08-12 09:30)
PROC: (CPT 64721; 2025-08-12 09:30)
DX: G56.02 Carpal tunnel syndrome, left upper limb (principal); G56.22 Lesion of ulnar nerve, left upper limb; M67.442 Ganglion, left hand; R20.0 Anesthesia of skin; I10 Essential (primary) hypertension; R74.8 Abnormal levels of other serum enzymes; E78.5 Hyperlipidemia, unspecified; J44.9 Chronic obstructive pulmonary disease, unspecified; Z79.899 Other long term (current) drug therapy; Z88.8 Allergy status to other drugs, medicaments and biological substances; Z90.49 Acquired absence of other specified parts of digestive tract; Z98.890 Other specified postprocedural states; Z87.891 Personal history of nicotine dependence
CPT/HCPCS: 64721; 64718; 26160; 88304; J0131; J0690; J1100; J2003; J2004; J2405; J2704; J3010

== ENCOUNTER → 2025-08-12 07:45 | Outpatient (BNV) | payer BC, SELFPAY | PROVIDERS: PCP Internal Medicine; Visit Provider Orthopaedic Surgery | DX: G56.02 Carpal tunnel syndrome, left upper limb (principal); G56.22 Lesion of ulnar nerve, left upper limb; M71.342 Other bursal cyst, left hand | CPT/HCPCS: 26160; 64718; 64721 ==